=== PATIENT | female | born 1930 | race Caucasian/White ===

== ENCOUNTER 2016-04-03 12:56 | Emergency (ER) | payer MEDICARE, MEDICAID ==
[2016-04-03 13:16] VITALS: BMI 22.4
--- NOTE | 2016-04-03 13:49 | EDPRACDOC ---
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 Mode of Arrival: Ambulance Home Medications: Home Medications Clopidogrel Bisulfate [Plavix] 75 mg PO DAILY 09/26/12 PEG-Electrolytes (Miralax) [Miralax] 17 gm PO DAILY PRN 09/26/12 Triamcinolone Acetonide 1 gm TOP TID 09/26/12 Cholecalciferol [Vitamin D3 (cholecalciferol)] 1,000 units PO DAILY 12/17/12 Levetiracetam [Keppra Xr] 1,000 mg PO BID 01/08/14 Lisinopril [Prinivil] 2.5 mg PO HS 01/08/14 Acetaminophen [Tylenol] 650 mg PO Q6H 06/22/14 Docusate Sodium [Colace] 100 mg PO QAM 06/22/14 Levothyroxine [Synthroid, Levoxyl] 25 mcg PO DAILY #30 tab 06/23/14 Diphenhydramine [Benadryl] 25 mg PO TID PRN 08/22/14 Furosemide [Lasix] 20 mg PO BID 08/22/14 Melatonin/Pyridoxine HCl (B6) [Melatonin 10 mg Tablet] 1 tab PO HS 08/22/14 Atorvastatin Calcium [Lipitor] 10 mg PO DAILY 06/26/15 Mineral Oil [Mineral Oil Heavy] 2 drop AU WE 06/26/15 Alprazolam [Xanax] 0.5 mg PO QHS 03/14/16 Tramadol HCl [Ultram] 50 mg PO Q6 PRN #15 tablet 03/15/16 Guaifenesin [Robitussin] 5 ml PO Q8H PRN 04/03/16 Hydrocodone Bit/Acetaminophen [Hydrocodon-Acetaminophen 5-325] 1 tab PO Q4H PRN #14 tab 04/03/16 Allergies/Adverse Reactions: Allergies Allergy/AdvReac Type Severity Reaction Status Date / Time aspirin Allergy Unknown Unknown Verified 04/03/16 13:20 Penicillins Allergy Unknown Unknown Verified 04/03/16 13:20 - History of Present Illness Onset: 3 days HPI: PT PRESENTS TO ED BY EMS FOR RIGHT SHOULDER PAIN. NO NEW INJURY AT THIS TIME, HAS HAD PROBLEM WITH ROTATOR CUFF IN PAST, PT STATES DOESNT HURT ALL THE TIME BUT FLARES UP FROM TIME TO TIME. 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 ALS IV Yes ED Past Medical History - History Reviewed Yes Nurses notes reviewed and agree except as marked Travel Outside of [place] in the Last 3 Months?: No Information Unobtainable: Yes Unable to obtain information due to patient condition - Patient Medical History Neurological History: Reports: Seizures, Dementia Cardiac History: Reports: Hypertension, Congestive Heart Failure, Heart Attack, Hypercholesterolemia Respiratory History: Reports: COPD GI/ History: Reports: Gastroesophageal Reflux Musculoskeletal History: Reports: Arthritis Psychological History: Denies: Depression Systemic History: Denies: Cancer Surgical History: Reports: Hysterectomy, Tonsillectomy/Adnoidectomy, Other ( RIGHT ROTATOR CUFF) - Family Medical History Reports: Hypertension (Mom), Diabetes (brother), Cancer (Mom, brother X 2), Cardiac Disorders (Dad). Denies: Stroke - Social Medical History Smoking Status: Never smoker EDM Review of Systems - Review of Systems ROS Negative Except as Marked: Yes All systems reviewed and were negative except as marked ROS Unobtainable: Yes Review of systems cannot be obtained due to the patient's medical condition (DEMENTIA, PT SENT TO ED BY EMS) Constitutional: No Symptoms Reported. negative: Fever, Chills, Weakness, Fatigue, Loss of Appetite Eyes: No Symptoms Reported. negative: Redness, Blurred Vision, Double Vision, Discharge, Pain, Light Sensitive, Photophobia Ears: No Symptoms Reported. negative: Pain, Hearing Loss, Drainage, Ear Pulling Throat: No Symptoms Reported. negative: Pain, Swelling Nose: No Symptoms Reported. negative: Congestion, Bleeding, Discharge, Injection, Swelling, Deformity, Ecchymosis, Tender, Abrasion, Laceration Mouth: No Symptoms Reported. negative: Pain, Drooling Respiratory: No Symptoms Reported. negative: Cough, Brassy Cough, Barky Cough, Shortness of Breath, Wheezing, Hemoptysis Cardiovascular: No Symptoms Reported. negative: Chest Pain, Palpitations, Syncope, Edema, Orthopnea, PND, Skin Mottling, Cyanosis Gastrointestinal: No Symptoms Reported. negative: Pain, Constipation, Nausea, Vomiting, Diarrhea, Melena, Formula Intolerance Genitourinary: No Symptoms Reported. negative: Dysuria, Hematuria, Frequency, Discharge, Bleeding, Testicular Pain, Neurological: No Symptoms Reported. negative: Headache, Dizziness, Seizure, Numbness, Weakness, Speech Difficulty, Gait Difficulty Musculoskeletal: Shoulder (RT). negative: Arm, Ankle, Back, Chestwall, Elbow, Forearm, Femur, Foot, Hand, Hip, Knee, Leg, Neck, Pelvis, Ribs, Wrist Integumentary: No Symptoms Reported. negative: Itching, Rash, Bruising, Wound Allergic/Immunologic: No Symptoms Reported. negative: Hives, Itching Hematologic: No Symptoms Reported. negative: Lymphadenopathy, Easy Bruising, Easy Bleeding Endocrine: No Symptoms Reported. negative: Weight Gain, Weight Loss Psychiatric: No Symptoms Reported. negative: Anxiety, Depression, Hallucinations, Insomnia, Suicidal - Physical Exam Constitutional: Alert, Confused Oriented to: Unable to Test (DEMENTIA) Last recorded Vital Signs: Last Vital Signs Temp 98.4 F 04/03/16 13:07 Pulse 81 04/03/16 13:16 Resp 16 04/03/16 13:16 BP 144/74 04/03/16 13:16 Pulse Ox 96 04/03/16 13:16 Oxygen Pulse Oxygen Saturation 96 O2 Device Oxygen Flow Rate Fraction of Inspired Oxygen ( FIO2) - HEENT Head: Normal ( normocephalic) Eye Exam: Normal (PERRL, EOMI, Sclera white) Oropharynx: Normal (Pharynx:Moist without exudate,Gums-no swelling) Tympanic Membrane: Normal ENT EAC: Normal TMJ: Normal Nose: No Symptoms Reported (septum midline) Neck: Normal (FROM, trachea at midline) - Respiratory/Cardiovascular Respiratory: Normal - CTA (BBS clear to auscultation without adventitious sounds ) Cardiovascular: Normal (RRR without murmur, gallop or rub) - GI Auscultation: Normal (NABS) Palpation: Normal (Soft,No rebound or guarding, non distended) Tenderness: Non tender Xie's Sign: Negative - Bladder: Normal - Musculoskeletal Back: Normal (Non-Tender) Extremities: Normal (Normal tone, Pulses 2+ No cyanosis or edema, FROM) - Integumentary Skin: Normal, Warm, Dry Lymphatics: Normal (no adenopathy) - Neurologic Memory Impaired: Normal Motor Function: Normal (Normal tone, Pulses 2+ No cyanosis or edema, FROM) Cranial Nerve: Normal (CN II-X11 intact sensation, strength 5/5) Cerebellar: Normal Mood Description: Normal Perception: Normal ED Shoulder Problem Exam - Musculoskeletal Clavicle: Normal Shoulder: Limited ROM, Tender Arm: Normal Distal Function/Circulation: Normal - Differential Diagnosis Dislocation, Humerus fracture/open, Rotator cuff injury, Sprain - Diagnostic Imaging SHOULDER Image interpreted by: Radiologist IMPRESSION: Mild glenohumeral degenerative changes and osseous demineralization. Lateral downsloping acromion with inferior acromial spur formation which would predispose patient to rotator cuff disease. No acute abnormalities. Decision Time to Discharge: 14:15 - Departure Disposition: Home Condition: Stable Final Diagnosis: Right shoulder strain Qualifiers: Encounter type: initial encounter Qualified Code(s): S46.911A - Strain of unspecified muscle, fascia and tendon at shoulder and upper arm level, right arm , initial encounter Rotator cuff arthropathy Qualifiers: Laterality: right Qualified Code(s): M12.811 - Other specific arthropathies, not elsewhere classified, right shoulder Instructions: RICE: Routine Care for Injuries, Rotator Cuff Injury (ED) Education/Counseling Given To: Patient Education/Counseling Given Regarding: Diagnosis, Treatment, Prognosis, Follow Up Referrals: None,No Provider [Primary Care Provider] - One Week Alireza Heller MD [Staff Physician] - One Week Prescriptions: Hydrocodone Bit/Acetaminophen [Hydrocodon-Acetaminophen 5-325] 1 tab PO Q4H PRN #14 tab PRN Reason: Pain Additional Instructions: FOLLOW WITH ORTHOPEDIST PATRICIA. RETURN FOR WORSE OR DIFFERENT SYMPTOMS.
[2016-04-03] MEDS ORDERED: OXYCODONE HCL 5 MG TABLET PO ONE (13:53)
--- NOTE | 2016-04-03 14:10 | DIRPT ---
CLINICAL DATA: RIGHT shoulder pain, no new injury, history of rotator cuff disease EXAM: RIGHT SHOULDER - 2+ VIEW COMPARISON: 03/14/2016 FINDINGS: Osseous demineralization. Lateral downsloping of acromion with inferior acromial spur formation, which would predispose patient to rotator cuff pathology. Minimal spurring at the glenoid rim. AC joint alignment normal. No definite acute fracture, dislocation or bone destruction. Visualized RIGHT ribs intact. IMPRESSION: Mild glenohumeral degenerative changes and osseous demineralization. Lateral downsloping acromion with inferior acromial spur formation which would predispose patient to rotator cuff disease. No acute abnormalities. Electronically Signed By: Clyde Joshi M.D. On: 04/03/2016 14:08
[2016-04-03 14:54] VITALS: BP 139/76; PULSE 78; TEMP 98.3
== END 2016-04-03 15:00 | disposition short-term general hospital (02) ==
LOC: ED 12:56
DX: S46.911A Strain of unspecified muscle, fascia and tendon at shoulder and upper arm level, right arm, initial encounter (principal); X58.XXXA Exposure to other specified factors, initial encounter; M12.811 Other specific arthropathies, not elsewhere classified, right shoulder; F03.90 Unspecified dementia, unspecified severity, without behavioral disturbance, psychotic disturbance, mood disturbance, and anxiety; I10 Essential (primary) hypertension; I50.9 Heart failure, unspecified; E78.00 Pure hypercholesterolemia, unspecified; J44.9 Chronic obstructive pulmonary disease, unspecified; K21.9 Gastro-esophageal reflux disease without esophagitis; Z79.899 Other long term (current) drug therapy
CPT/HCPCS: 73030; 99283; A9270; J3490

== ENCOUNTER 2016-04-06 16:33 | Inpatient (IN) | payer MEDICARE, MEDICAID ==
[2016-04-06 16:34] VITALS: BMI 22.4
[2016-04-06 17:02] LABS: WBC/URINE 0-2 (0-5)
[2016-04-06 17:04] LABS: LEUKOCYTES/URINE NEG (NEGATIVE); NITRITE/URINE NEG (NEGATIVE); URINE OCCULT BLOOD 2+ (NEG/TRACE)
[2016-04-06] MEDS ORDERED: SODIUM CHLORIDE 0.9% 10 ML FLUSH FLUSH PRN (17:04)
[2016-04-06] MEDS ORDERED: NS 1,000 ML IV ONE (17:04)
[2016-04-06 17:38] LABS: AUTOMATED LYMPH 34.2 % (17-44); AUTOMATED MONOCYTE 7.3 % (3-10); AUTOMATED NEUTROPHIL 56.5 % (45-76)
--- NOTE | 2016-04-06 17:43 | DIRPT ---
CLINICAL DATA: Chest pain. EXAM: PORTABLE CHEST 1 VIEW COMPARISON: 03/14/2016. FINDINGS: Normal sized heart. Mildly progressive elevation of the left hemidiaphragm with minimal adjacent atelectasis. Otherwise, clear lungs with normal vascularity. Unremarkable bones. IMPRESSION: Mildly progressive elevation of the left hemidiaphragm with minimal left basilar atelectasis. Electronically Signed By: Dhruv Whittaker M.D. On: 04/06/2016 17:40
[2016-04-06 17:51] LABS: PARTIAL THROMB. TIME 18.6 SEC (22-35)
[2016-04-06 17:53] LABS: BLOOD UREA NITROGEN 14 MG/DL (7-17); CALCIUM 9.5 MG/DL (8.4-10.2); CALCULATED OSMOLALITY 254 MOs/Kg (270-290); CHLORIDE 94 mEq/L (98-107); GLUCOSE 97 MG/DL (70-99); SODIUM LEVEL 131 mEq/L (137-146); TOTAL PROTEIN 6.9 G/DL (6.3-8.2)
--- NOTE | 2016-04-06 18:01 | DIRPT ---
CLINICAL DATA: Facial droop and slurred speech today. EXAM: CT HEAD WITHOUT CONTRAST TECHNIQUE: Contiguous axial images were obtained from the base of the skull through the vertex without intravenous contrast. COMPARISON: Previous examinations, the most recent dated 09/11/2015. FINDINGS: Diffusely enlarged ventricles and subarachnoid spaces. Patchy white matter low density in both cerebral hemispheres. An old right caudate head lacunar infarct and old lacunar infarct or prominent perivascular space in the inferior left basal ganglia are unchanged. No intracranial hemorrhage, mass lesion or CT evidence of acute infarction. Mild mucosal thickening and fluid in the left mastoid air cells inferiorly. This is a chronic finding. IMPRESSION: 1. No acute abnormality. 2. Stable atrophy, chronic small vessel white matter ischemic changes and old caudate head lacunar infarct on the right. 3. Mild chronic left mastoid air cell mucosal thickening and fluid. Electronically Signed By: Dhruv Whittaker M.D. On: 04/06/2016 17:58
--- NOTE | 2016-04-06 18:05 | EDPRACDOC ---
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 Mode of Arrival:: Ambulance Home Medications: Home Medications Clopidogrel Bisulfate [Plavix] 75 mg PO DAILY 09/26/12 PEG-Electrolytes (Miralax) [Miralax] 17 gm PO DAILY PRN 09/26/12 Triamcinolone Acetonide 1 gm TOP TID 09/26/12 Cholecalciferol [Vitamin D3 (cholecalciferol)] 1,000 units PO DAILY 12/17/12 Levetiracetam [Keppra Xr] 1,000 mg PO BID 01/08/14 Lisinopril [Prinivil] 2.5 mg PO HS 01/08/14 Acetaminophen [Tylenol] 650 mg PO Q6H 06/22/14 Docusate Sodium [Colace] 100 mg PO QAM 06/22/14 Levothyroxine [Synthroid, Levoxyl] 25 mcg PO DAILY #30 tab 06/23/14 Diphenhydramine [Benadryl] 25 mg PO TID PRN 08/22/14 Furosemide [Lasix] 20 mg PO BID 08/22/14 Melatonin/Pyridoxine HCl (B6) [Melatonin 10 mg Tablet] 1 tab PO HS 08/22/14 Atorvastatin Calcium [Lipitor] 10 mg PO DAILY 06/26/15 Mineral Oil [Mineral Oil Heavy] 2 drop AU WE 06/26/15 Alprazolam [Xanax] 0.5 mg PO QHS 03/14/16 Tramadol HCl [Ultram] 50 mg PO Q6 PRN #15 tablet 03/15/16 Guaifenesin [Robitussin] 5 ml PO Q8H PRN 04/03/16 Hydrocodone Bit/Acetaminophen [Hydrocodon-Acetaminophen 5-325] 1 tab PO Q4H PRN #14 tab 04/03/16 Allergies/Adverse Reactions: Allergies Allergy/AdvReac Type Severity Reaction Status Date / Time aspirin Allergy Unknown Unknown Verified 04/03/16 13:20 Penicillins Allergy Unknown Unknown Verified 04/03/16 13:20 - History of Present Illness Exact Onset of Symptoms: Unknown Symptoms Started: Reports: Gradually Symptoms: Reports: Facial droop, Slurred speech Associated signs and symptoms:: Reports: None ED Past Medical History - History Reviewed Yes Nurses notes reviewed and agree except as marked - Patient Medical History Neurological History: Reports: Seizures, Dementia Cardiac History: Reports: Hypertension, Congestive Heart Failure, Heart Attack, Hypercholesterolemia Respiratory History: Reports: COPD GI/ History: Reports: Gastroesophageal Reflux Musculoskeletal History: Reports: Arthritis Psychological History: Denies: Depression Systemic History: Denies: Cancer Surgical History: Reports: Hysterectomy, Tonsillectomy/Adnoidectomy, Other ( RIGHT ROTATOR CUFF) - Family Medical History Reports: Hypertension (Mom), Diabetes (brother), Cancer (Mom, brother X 2), Cardiac Disorders (Dad). Denies: Stroke - Social Medical History Smoking Status: Never smoker EDM Review of Systems - Review of Systems ROS Negative Except as Marked: Yes All systems reviewed and were negative except as marked - Physical Exam Constitutional: Alert (Awake), No apparent distress Oriented to: Time, Person, Place Last recorded Vital Signs: Last Vital Signs Temp 99.8 F 04/06/16 16:45 Pulse 72 04/06/16 17:50 Resp 18 04/06/16 17:50 BP 167/75 04/06/16 17:50 Pulse Ox 98 04/06/16 17:50 Oxygen Pulse Oxygen Saturation 98 O2 Device Room Air Oxygen Flow Rate Fraction of Inspired Oxygen ( FIO2) - HEENT Head: Normal ( normocephalic) Eye Exam: Normal (PERRL, EOMI, Sclera white) Oropharynx: Normal (Pharynx:Moist without exudate,Gums-no swelling) ENT EAC: Normal TMJ: Normal Nose: No Symptoms Reported (septum midline) Neck: Normal (FROM, trachea at midline) - Respiratory/Cardiovascular Respiratory: Normal - CTA (BBS clear to auscultation without adventitious sounds ) Cardiovascular: Normal (RRR without murmur, gallop or rub) - GI Auscultation: Normal (NABS) Palpation: Normal (Soft,No rebound or guarding, non distended) Tenderness: Non tender Xie's Sign: Negative - Musculoskeletal Back: Normal (Non-Tender) Extremities: Normal (Normal tone, Pulses 2+ No cyanosis or edema, FROM) - Integumentary Skin: Normal, Warm, Dry Lymphatics: Normal (no adenopathy) - Neurologic Memory Impaired: Unable to Test Motor Function: Normal (Normal tone, Pulses 2+ No cyanosis or edema, FROM) Cranial Nerve: 7 Cerebellar: Normal Mood Description: Normal Perception: Normal - Action Has patient received an Antithrombotic in the last 24hrs?: No Was an Antithrombotic given in the ED?: No Is patient a candidate for lytic therapy?: No Patient received TPA within 30 min of arrival?: No Reason IV Thrombolytics Contraindicated: Rapid Improvement - Results 04/06/16 17:20 04/06/16 17:20 WBC 4.7 xk/uL (3.8-10.8) 04/06/16 17:20 RBC 3.52 xM/uL (4.20-5.40) L 04/06/16 17:20 Hgb 11.3 g/dL (12.0-16.0) L 04/06/16 17:20 Hct 33.1 % (36-47) L 04/06/16 17:20 MCV 94 fL (81-99) 04/06/16 17:20 MCH 32.1 pg (27-32) H 04/06/16 17:20 MCHC 34.1 g/dl (33-36) 04/06/16 17:20 RDW 14.9 % (11.5-14.5) H 04/06/16 17:20 Plt Count 386 xk/uL (130-400) 04/06/16 17:20 MPV 7.0 fL (7.4-10.4) L 04/06/16 17:20 Neut % (Auto) 56.5 % (45-76) 04/06/16 17:20 Lymph % (Auto) 34.2 % (17-44) 04/06/16 17:20 [place] % (Auto) 7.3 % (3-10) 04/06/16 17:20 Eos % (Auto) 1.0 % (0-5) 04/06/16 17:20 Baso % (Auto) 1.0 % (0-2) 04/06/16 17:20 Absolute Neuts (auto) 2.63 xk/uL (1.7-8.2) 04/06/16 17:20 Absolute Lymphs (auto) 1.60 xk/uL (0.65-4.75) 04/06/16 17:20 PT 10.4 SEC (9.2-11.2) 04/06/16 17:20 INR 1.0 04/06/16 17:20 APTT 18.6 SEC (22-35) L 04/06/16 17:20 Sodium 131 mEq/L (137-146) L 04/06/16 17:20 Potassium 3.8 mEq/L (3.5-5.1) 04/06/16 17:20 Chloride 94 mEq/L (98-107) L 04/06/16 17:20 Carbon Dioxide 26 mMOL/L (22-33) 04/06/16 17:20 Anion Gap 15 mEq/L (8-16) 04/06/16 17:20 BUN 14 MG/DL (7-17) 04/06/16 17:20 Creatinine 0.70 MG/DL (0.52-1.04) 04/06/16 17:20 Estimated GFR (MDRD) > 60 mL/min (>=60) 04/06/16 17:20 Glucose 97 MG/DL (70-99) 04/06/16 17:20 Calculated Osmolality 254 MOs/Kg (270-290) L 04/06/16 17:20 Calcium 9.5 MG/DL (8.4-10.2) 04/06/16 17:20 Total Bilirubin 0.6 MG/DL (0.2-1.3) 04/06/16 17:20 AST 29 IU/L (14-36) 04/06/16 17:20 ALT 26 IU/L (9-52) 04/06/16 17:20 Alkaline Phosphatase 66 IU/L (55-165) 04/06/16 17:20 Total Protein 6.9 G/DL (6.3-8.2) 04/06/16 17:20 Albumin 4.1 G/DL (3.5-5.0) 04/06/16 17:20 Urine Color Pale yellow 04/06/16 16:45 Urine Clarity Clear 04/06/16 16:45 Urine pH 6.0 (5.0-8.0) 04/06/16 16:45 Ur Specific [place] 1.005 (1.003-1.035) 04/06/16 16:45 Urine Protein Neg (NEG/TRACE) 04/06/16 16:45 Urine Glucose (UA) Neg (NEGATIVE) 04/06/16 16:45 Urine Ketones Neg (NEGATIVE) 04/06/16 16:45 Urine Occult Blood 2+ (NEG/TRACE) H 04/06/16 16:45 Urine Nitrite Neg (NEGATIVE) 04/06/16 16:45 Urine Bilirubin Neg (NEGATIVE) 04/06/16 16:45 Urine Urobilinogen 0.2 MG/DL (0-1) 04/06/16 16:45 Ur Leukocyte Esterase Neg (NEGATIVE) 04/06/16 16:45 Urine RBC 2-5 (0-5) 04/06/16 16:45 Urine WBC 0-2 (0-5) 04/06/16 16:45 Urine Bacteria Few (NEG/FEW) 04/06/16 16:45 Hyaline Casts 0-2 (0-2) 04/06/16 16:45 Urine Mucus Occ (NEG/OCC) 04/06/16 16:45 Lab Results 04/06/16 04/06/16 04/06/16 17:20 17:20 17:20 WBC 4.7 RBC 3.52 L Hgb 11.3 L Hct 33.1 L MCV 94 MCH 32.1 H MCHC 34.1 RDW 14.9 H Plt Count 386 MPV 7.0 L Neut % (Auto) 56.5 Lymph % (Auto) 34.2 [place] % (Auto) 7.3 Eos % (Auto) 1.0 Baso % (Auto) 1.0 Absolute Neuts (auto) 2.63 Absolute Lymphs (auto) 1.60 PT 10.4 INR 1.0 APTT 18.6 L Sodium 131 L Potassium 3.8 Chloride 94 L Carbon Dioxide 26 Anion Gap 15 BUN 14 Creatinine 0.70 Estimated GFR (MDRD) > 60 Glucose 97 Calculated Osmolality 254 L Calcium 9.5 Total Bilirubin 0.6 AST 29 ALT 26 Alkaline Phosphatase 66 Total Protein 6.9 Albumin 4.1 Urine Color Urine Clarity Urine pH Ur Specific [place] Urine Protein Urine Glucose (UA) Urine Ketones Urine Occult Blood Urine Nitrite Urine Bilirubin Urine Urobilinogen Ur Leukocyte Esterase Urine RBC Urine WBC Urine Bacteria Hyaline Casts Urine Mucus 04/06/16 16:45 WBC RBC Hgb Hct MCV MCH MCHC RDW Plt Count MPV Neut % (Auto) Lymph % (Auto) [place] % (Auto) Eos % (Auto) Baso % (Auto) Absolute Neuts (auto) Absolute Lymphs (auto) PT INR APTT Sodium Potassium Chloride Carbon Dioxide Anion Gap BUN Creatinine Estimated GFR (MDRD) Glucose Calculated Osmolality Calcium Total Bilirubin AST ALT Alkaline Phosphatase Total Protein Albumin Urine Color Pale yellow Urine Clarity Clear Urine pH 6.0 Ur Specific [place] 1.005 Urine Protein Neg Urine Glucose (UA) Neg Urine Ketones Neg Urine Occult Blood 2+ H Urine Nitrite Neg Urine Bilirubin Neg Urine Urobilinogen 0.2 Ur Leukocyte Esterase Neg Urine RBC 2-5 Urine WBC 0-2 Urine Bacteria Few Hyaline Casts 0-2 Urine Mucus Occ - EKG EKG #1 [place]: Normal Rhythm: NSR Block: None Hypertrophy: None ST: Normal - Departure Yes I personally saw and evaluated the patient. 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
--- NOTE | 2016-04-06 18:31 | HISTPHYS ---
- Chief Complaint weakness - History of Present Illness PRIMARY CARE PROVIDER: Dr. Ruth Patient resides in [facility] living HPI: The patient is an 85 yo woman with dementia, seizures, who presents today with facial droop, slurred speech, and right arm weakness. Onset of the symptoms was sometime today, but patient is not sure when. Additional history is obtained from the medical records and the emergency department staff. Onset: today. Per records approximately 3 pm. Duration: constant but decreasing. Location: face and right arm. Radiation: none. Character: weakness. Alleviated by: Nothing. Exacerbated by: Nothing. Associated Symptoms: No numbness. No headache. Patient currently has no symptoms. No recent seizure activity. Slurred speech had resolved in the emergency department. Treatments: none at home except usual medications. The patient was improving in the emergency department. Currently she has minimal facial droop and only minimal weakness in the right arm, and some of the right arm weakness may be due to a rotator cuff problem she has had. - Medical History Cardiac History: Reports: Hypertension, Congestive Heart Failure, Heart Attack, Hypercholesterolemia Respiratory History: Reports: COPD (mild.) GI/ History: Reports: Gastroesophageal Reflux Musculoskeletal History: Reports: Arthritis Systemic History: Denies: Cancer Neurological History: Reports: Seizures, Dementia Psychological History: Denies: Depression OTHER HISTORY: ECHOCARDIOGRAM 06/22/2014: EF 60-65%. OVERALL LEFT VENTRICULAR SYSTOLIC FUNCTION IS NORMAL. Diastolic filling pattern indicates impaired relaxation. Mild aortic valve sclerosis without stenosis. Mild aortic regurgitation. Mild mitral regurgitation. - Surgical History Reports: Hysterectomy, Tonsillectomy/Adnoidectomy, Other (RIGHT ROTATOR CUFF) - Medictions/Allergies Allergies aspirin Allergy (Unknown, Verified 04/03/16 13:20) Unknown Penicillins Allergy (Unknown, Verified 04/03/16 13:20) Unknown Current Medication List: Reviewed Home Medications Clopidogrel Bisulfate [Plavix] 75 mg PO DAILY 09/26/12 PEG-Electrolytes (Miralax) [Miralax] 17 gm PO DAILY PRN 09/26/12 Triamcinolone Acetonide 1 gm TOP TID 09/26/12 Cholecalciferol [Vitamin D3 (cholecalciferol)] 1,000 units PO DAILY 12/17/12 Levetiracetam [Keppra Xr] 1,000 mg PO BID 01/08/14 Lisinopril [Prinivil] 2.5 mg PO HS 10/23/14 Acetaminophen [Tylenol] 650 mg PO Q6H 06/22/14 Docusate Sodium [Colace] 100 mg PO QAM 06/22/14 Levothyroxine [Synthroid, Levoxyl] 25 mcg PO DAILY #30 tab 06/23/14 Diphenhydramine [Benadryl] 25 mg PO TID PRN 08/22/14 Furosemide [Lasix] 20 mg PO BID 08/22/14 Melatonin/Pyridoxine HCl (B6) [Melatonin 10 mg Tablet] 1 tab PO HS 08/22/14 Atorvastatin Calcium [Lipitor] 10 mg PO DAILY 06/26/15 Mineral Oil [Mineral Oil Heavy] 2 drop AU WE 06/26/15 Alprazolam [Xanax] 0.5 mg PO QHS 03/14/16 Tramadol HCl [Ultram] 50 mg PO Q6 PRN #15 tablet 03/15/16 Guaifenesin [Robitussin] 5 ml PO Q8H PRN 04/03/16 Hydrocodone Bit/Acetaminophen [Hydrocodon-Acetaminophen 5-325] 1 tab PO Q4H PRN #14 tab 04/03/16 - Family History Reports: Hypertension (Mom), Diabetes (brother), Cancer (Mom, brother X 2), Cardiac Disorders (Dad). Denies: Stroke - Social History Smoking Status: Never smoker Social History: Denies: Alcohol Use, Substance Use Disorder - Review of Systems GENERAL: No Fever, chills, or diaphoresis. Positive for fatigue/malaise. HEENT: No ear pain or discharge. No nasal discharge or bleeding. No throat pain or swelling. No eye pain or eye redness. RESPIRATORY: No cough, wheezing, or shortness of breath. CARDIOVASCULAR: No chest pain or palpitations. GI: No abdominal pain, nausea, vomiting, diarrhea, constipation, or bloody stool. NEUROLOGICAL: No headache. Except as per HPI, no other focal weakness. INTEGUMENT: no rashes, itching, or lesions. LYMPHATIC SYSTEM: no lymph node swelling or pain. MUSCULOSKELETAL: no pain or joint swelling. GENITOURINARY: No dysuria or hematuria. ENDOCRINE: No polyuria or polydipsia. HEME: No chronic anemia, bleeding, or easy bruising. - Physical Exam Vital Signs: Initial Vitals Temperature 99.8 F 04/06/16 16:37 Pulse Rate 70 04/06/16 16:37 Respiratory Rate 18 04/06/16 16:37 Blood Pressure 153/68 04/06/16 16:37 Pulse Oxygen Saturation 100 04/06/16 16:37 Vital Signs - 24 hr 04/06/16 04/06/16 04/06/16 16:37 16:45 17:50 Temperature 99.8 F 99.8 F Pulse Rate 70 73 72 Respiratory 18 21 18 Rate Blood Pressure 153/68 153/68 167/75 Pulse Oxygen 100 100 98 Saturation Weight: 61.2 kg Height: 5 feet 5 inch BMI: 22.5 - Other Exam Other Exam Findings: GENERAL: Ill-appearing, well nourished, in acute distress. HEENT: Normocephalic, atraumatic; pupils equal and round. Nares patent, without discharge or bleeding. No oropharyngeal lesions or erythema. Mucous membranes are dry. NECK: is supple, no masses, trachea midline. RESPIRATORY: Clear to auscultation bilaterally. Chest wall movements are symmetric. No use of accessory muscles to breathe. No wheezing, rales, rhonchi. CARDIOVASCULAR: Normal S1, S2. No murmurs, rubs, or gallops. PMI non-displaced. Carotids: no carotid bruits. No bradycardia or tachycardia. DP pulses 1-2+ bilaterally. GI: soft, nontender, non-distended, normal active bowel sounds. No hepatosplenomegaly. INTEGUMENT: Clean, dry, and intact. No rashes. MUSCULOSKELETAL: Moving all extremities. No cyanosis. No clubbing. Edema: none bilaterally. NEUROLOGICAL: Cranial nerves 2-12 grossly intact, except slight facial droop. Motor 4+/5 throughout, with slightly decreased strength 4/5 on right upper extremity. Reflexes: 2+ bilaterally. Babinski: toes downgoing bilaterally. Intact Finger to nose. Sensory grossly intact to light touch. Intact rapid alternating movements bilaterally. No pronator drift. PSYCHIATRIC: Oriented to person and year. Not oriented to place. Normal and appropriate affect. LYMPHATIC: No cervical lymphadenopathy. No supraclavicular lymphadenopathy. - Lab Results Laboratory Results - last 24 hr 04/06/16 04/06/16 04/06/16 16:45 17:20 17:20 WBC 4.7 RBC 3.52 L Hgb 11.3 L Hct 33.1 L MCV 94 MCH 32.1 H MCHC 34.1 RDW 14.9 H Plt Count 386 MPV 7.0 L Neut % (Auto) 56.5 Lymph % (Auto) 34.2 [place] % (Auto) 7.3 Eos % (Auto) 1.0 Baso % (Auto) 1.0 Absolute Neuts (auto) 2.63 Absolute Lymphs (auto) 1.60 PT INR APTT Sodium 131 L Potassium 3.8 Chloride 94 L Carbon Dioxide 26 Anion Gap 15 BUN 14 Creatinine 0.70 Estimated GFR (MDRD) > 60 Glucose 97 Calculated Osmolality 254 L Calcium 9.5 Total Bilirubin 0.6 AST 29 ALT 26 Alkaline Phosphatase 66 Troponin I < 0.01 Rhe-Q-Tocsyzlynkj Pept 150 Total Protein 6.9 Albumin 4.1 Urine Color Pale yellow Urine Clarity Clear Urine pH 6.0 Ur Specific [place] 1.005 Urine Protein Neg Urine Glucose (UA) Neg Urine Ketones Neg Urine Occult Blood 2+ H Urine Nitrite Neg Urine Bilirubin Neg Urine Urobilinogen 0.2 Ur Leukocyte Esterase Neg Urine RBC 2-5 Urine WBC 0-2 Urine Bacteria Few Hyaline Casts 0-2 Urine Mucus Occ 04/06/16 17:20 WBC RBC Hgb Hct MCV MCH MCHC RDW Plt Count MPV Neut % (Auto) Lymph % (Auto) [place] % (Auto) Eos % (Auto) Baso % (Auto) Absolute Neuts (auto) Absolute Lymphs (auto) PT 10.4 INR 1.0 APTT 18.6 L Sodium Potassium Chloride Carbon Dioxide Anion Gap BUN Creatinine Estimated GFR (MDRD) Glucose Calculated Osmolality Calcium Total Bilirubin AST ALT Alkaline Phosphatase Troponin I Xcm-G-[place]vbfe Pept Total Protein Albumin Urine Color Urine Clarity Urine pH Ur Specific [place] Urine Protein Urine Glucose (UA) Urine Ketones Urine Occult Blood Urine Nitrite Urine Bilirubin Urine Urobilinogen Ur Leukocyte Esterase Urine RBC Urine WBC Urine Bacteria Hyaline Casts Urine Mucus - Diagnostic Findings DIAGNOSTIC DATA: EK bpm. Normal sinus rhythm. Incomplete right bundle branch block. Nonspecific ST abnormality. Reviewed EKG personally. IMAGING: Chest x-ray, viewed personally: EXAM: PORTABLE CHEST 1 VIEW COMPARISON: 03/14/2016. FINDINGS: Normal sized heart. Mildly progressive elevation of the left hemidiaphragm with minimal adjacent atelectasis. Otherwise, clear lungs with normal vascularity. Unremarkable bones. IMPRESSION: Mildly progressive elevation of the left hemidiaphragm with minimal left basilar atelectasis. Head CT: EXAM: CT HEAD WITHOUT CONTRAST TECHNIQUE: Contiguous axial images were obtained from the base of the skull through the vertex without intravenous contrast. COMPARISON: Previous examinations, the most recent dated 09/11/2015. FINDINGS: Diffusely enlarged ventricles and subarachnoid spaces. Patchy white matter low density in both cerebral hemispheres. An old right caudate head lacunar infarct and old lacunar infarct or prominent perivascular space in the inferior left basal ganglia are unchanged. No intracranial hemorrhage, mass lesion or CT evidence of acute infarction. Mild mucosal thickening and fluid in the left mastoid air cells inferiorly. This is a chronic finding. IMPRESSION: 1. No acute abnormality. 2. Stable atrophy, chronic small vessel white matter ischemic changes and old caudate head lacunar infarct on the right. 3. Mild chronic left mastoid air cell mucosal thickening and fluid. PREVIOUS IMAGING: Right shoulder x-ray, 04/03/16: EXAM: RIGHT SHOULDER - 2+ VIEW COMPARISON: 03/14/2016 FINDINGS: Osseous demineralization. Lateral downsloping of acromion with inferior acromial spur formation, which would predispose patient to rotator cuff pathology. Minimal spurring at the glenoid rim. AC joint alignment normal. No definite acute fracture, dislocation or bone destruction. Visualized RIGHT ribs intact. IMPRESSION: Mild glenohumeral degenerative changes and osseous demineralization. Lateral downsloping acromion with inferior acromial spur formation which would predispose patient to rotator cuff disease. No acute abnormalities. - Assessment (1) CVA - cerebrovascular accident due to cerebral artery occlusion I63.50 - CEREB INFRC DUE TO UNSP OCCLS OR STENOS OF UNSP CEREB ARTERY Acute Present on Admission: Yes Plan: CVA order set. MRI head and Ultrasound of carotids in the AM. NPO until speech therapy evaluation. Physical therapy and occupational therapy evaluations. Neuro checks q 4 hours. Telemetry. NO daily aspirin due to allergy. May want to consider other medication, such as Plavix. Continue statin. Check lipid levels. NOTE: TPA NOT GIVEN. NO TPA DUE TO: NIH stroke score too low, and patient improving rapidly. (2) Facial droop R29.810 - FACIAL WEAKNESS Acute Present on Admission: Yes Plan: Continue CVA workup. Speech therapy evaluation. (3) Dysphagia R13.10 - DYSPHAGIA, UNSPECIFIED Acute Present on Admission: Yes Qualifiers: Dysphagia type: D Reports of dysphagia prior to arrival in emergency department. Plan: Continue CVA workup. NPO initially. Speech therapy evaluation. (4) Seizure disorder G40.909 - EPILEPSY, UNSP, NOT INTRACTABLE, WITHOUT STATUS EPILEPTICUS Acute Present on Admission: Yes No witnessed seizure activity. Plan: Change Keppra to IV until patient is taking PO. Monitor for seizure activity. (5) Rotator cuff arthropathy M12.819 - OTH SPECIFIC ARTHROPATHIES, NEC, UNSP SHOULDER Chronic Present on Admission: Yes Qualifiers: Laterality: right Qualified Code(s): M12.811 - Other specific arthropathies , not elsewhere classified, right shoulder Is a subacute issue. Right shoulder pain and weakness may be contributing to her right upper extremity weakness. Plan: PRN pain medication. Outpatient follow up. (6) Hypothyroid E03.9 - HYPOTHYROIDISM, UNSPECIFIED Acute Present on Admission: Yes Qualifiers: Hypothyroidism type: H Plan: Check TSH. Synthroid. (7) Dementia F03.90 - UNSPECIFIED DEMENTIA WITHOUT BEHAVIORAL DISTURBANCE Chronic Present on Admission: Yes Qualifiers: Dementia type: D Alzheimer's disease onset: A Dementia behavioral disturbance: D Will likely complicate her recovery. - Plan In summary, this patient is acutely and critically ill. The patient requires treatment of vital organ failure and measures to prevent further life- threatening deterioration of condition. I have spent 45 min in the critical care of this patient. Case Care Discussed with: Patient, Nursing Staff Total Time: 45 min Critical Care: Yes Code: 291 NIH Stroke Scale Initial Evaluation Level of Consciousness: Alert LOC- Question: Answers One Correctly LOC Commands: Both Task Correctly Best Gaze: Normal Visual: No Visual Loss Facial Palsy: Minor Paralysis Motor Arm LEFT: No Drift Motor Arm RIGHT: No Drift Motor Leg LEFT: No Drift Motor Leg RIGHT: No Drift Limb Ataxia: Absent Sensory: Normal Best Language: No Aphasia Dysarthria: Normal Extinction and Inattention: No Abnormality (Neglect) Score: 2out of42
[2016-04-06] MEDS ORDERED: DIPHENHYDRAMINE 25 MG PO PRN (21:35)
[2016-04-06] MEDS ORDERED: HYDROCODONE 5 MG/ACETAMIN 325 MG TAB PO PRN (21:35)
[2016-04-06] MEDS ORDERED: BENZONATATE 100 MG PERLES PO PRN (21:38)
[2016-04-06] MEDS ORDERED: ONDANSETRON HCL 4 MG/2 ML VIAL IV PRN (21:38)
[2016-04-06] MEDS ORDERED: ACETAMINOPHEN 325 MG SUPP PR PRN (21:38)
[2016-04-06] MEDS ORDERED: ACETAMINOPHEN 325 MG/TAB TABLET PO PRN (21:38)
[2016-04-06] MEDS ORDERED: SENNA CONCENTRATE TAB PO PRN (21:38)
[2016-04-06] MEDS ORDERED: SIMETHICONE 80 MG TAB PO PRN (21:38)
[2016-04-06] MEDS ORDERED: GUAIFEN 100 MG-DEXTROMETH 10 MG PER 5 ML PO PRN (21:38)
[2016-04-06] MEDS ORDERED: BISACODYL 5 MG TAB PO PRN (21:38)
[2016-04-06] MEDS ORDERED: TEMAZEPAM 15 MG CAP PO PRN (21:38)
[2016-04-06] MEDS ORDERED: PROMETHAZINE 25 MG/ML VIAL IV PRN (21:38)
[2016-04-06] MEDS ORDERED: DIPHENHYDRAMINE 25 MG CAP PO PRN (21:48)
[2016-04-06] MEDS ORDERED: TRIAMCINOLONE 0.5% CREAM 15 GM TUBE TOP SCH (22:00)
[2016-04-06] MEDS: ENOXAPARIN 40 MG/0.4 ML PFS SQ SCH (23:26)
[2016-04-06] MEDS: NS 1,000 ML IV SCH (23:27)
[2016-04-07] MEDS: TRIAMCINOLONE 0.5% CREAM 15 GM TUBE TOP SCH ×3 (05:09→20:25)
[2016-04-07 05:22] LABS: MPV 7.1 fL (7.4-10.4)
[2016-04-07 05:49] LABS: BLOOD UREA NITROGEN 13 MG/DL (7-17); CALCIUM 9.2 MG/DL (8.4-10.2); CALCULATED OSMOLALITY 255 MOs/Kg (270-290); CHLORIDE 98 mEq/L (98-107); GLUCOSE 92 MG/DL (70-99); LDL (calc.) 101.8 MG/DL (<100); SODIUM LEVEL 132 mEq/L (137-146); VLDL (calc.) 35.2 MG/DL (5-40)
[2016-04-07] MEDS ORDERED: Vaccine Screening Complete SCH (07:00)
--- NOTE | 2016-04-07 08:08 | DIRPT ---
CLINICAL DATA: Facial droop EXAM: BILATERAL CAROTID DUPLEX ULTRASOUND TECHNIQUE: Ragsdale scale imaging, color Doppler and duplex ultrasound were performed of bilateral carotid and vertebral arteries in the neck. COMPARISON: None. FINDINGS: Criteria: Quantification of carotid stenosis is based on velocity parameters that correlate the residual internal carotid diameter with NASCET-based stenosis levels, using the diameter of the distal internal carotid lumen as the denominator for stenosis measurement. The following velocity measurements were obtained: RIGHT ICA: 83 cm/sec CCA: 74 cm/sec SYSTOLIC ICA/CCA RATIO: 1.1 DIASTOLIC ICA/CCA RATIO: 3.0 ECA: 70 cm/sec LEFT ICA: 75 cm/sec CCA: 79 cm/sec SYSTOLIC ICA/CCA RATIO: 1 DIASTOLIC ICA/CCA RATIO: 1.8 ECA: 79 cm/sec RIGHT CAROTID ARTERY: There is calcified plaque in the upper bulb. Low resistance internal carotid Doppler pattern. Moderate tortuosity of the internal carotid. RIGHT VERTEBRAL ARTERY: Antegrade. Normal Doppler pattern. LEFT CAROTID ARTERY: Little if any plaque in the bulb. Low resistance internal carotid Doppler pattern. LEFT VERTEBRAL ARTERY: Antegrade. Low resistance Doppler pattern. Additional finding: Several cysts are seen in the right lobe of the thyroid gland. The largest visualized cyst is 7 mm. IMPRESSION: Less than 50% stenosis in the right and left internal carotid arteries. There is calcified plaque in the right upper bulb. Several right thyroid cysts. The largest is 7 mm. Complete thyroid ultrasound is recommended. Electronically Signed By: Jeff Ellis M.D. On: 04/07/2016 08:06
--- NOTE | 2016-04-07 08:20 | GENMEDPROG ---
Chief Complaint: CVA Subjective Note: Patient admitted with weakness, and slurred speech. She does not have any rectal recollection and is a poor historian. Currently, she complains many of right shoulder pain, which she admits is chronic related to a prior rotator cuff injury per nursing staff. Notes Reviewed: Yes Events from last night noted and discussed with Clinical Staff Current Medication List: Reviewed DVT Prophylaxis: Yes - Physical Examination Vital Signs and I&O: Last Vital Signs Temp 98.2 F 04/07/16 03:59 Pulse 75 04/07/16 08:16 Resp 18 04/07/16 03:59 BP 163/72 04/07/16 03:59 Pulse Ox 95 04/07/16 03:59 Oxygen Pulse Oxygen Saturation 95 O2 Device Room Air Oxygen Flow Rate Fraction of Inspired Oxygen ( FIO2) Intake & Output 04/05/16 04/06/16 04/07/16 04/08/16 06:59 06:59 06:59 06:59 Intake Total 556 Output Total 1300 Balance -744 Patient's weight 59.285 kg General: Alert, Oriented x3, Cooperative, Moderate distress HEENT: EOMI (Sclera white) Neck: Normal Trachea alignment, Normal inspection Lymphatics: Normal (no adenopathy) Respiratory: Normal - CTA (BBS clear to auscultation without adventitious sounds ) Cardiovascular: Regular rate, No Gallops,Rubs/Murmurs GI: Normal bowel sounds, Soft, Non tender (non distended) Extremities/Musculoskeletal: Other (Normal Tone). negative: Edema, Cyanosis Neurological: Normal speech, Strength (Global weakness throughout, I feel likely related to her age and frailty, rather than a focal neurologic deficit.) . negative: Strength at 5/5 X4 ext Psych/Mental Status: Appropriate, Normal Affect, Cooperative Lab/DI/Studies Reviewed: Laboratory Tests 04/07/16 04/07/16 04:35 04:35 WBC 6.4 Hgb 11.2 L Hct 32.3 L Sodium 132 L Potassium 4.0 BUN 13 Creatinine 0.60 LDL Cholesterol, Calc 101.8 H - Assessment (1) CVA - cerebrovascular accident due to cerebral artery occlusion Acute I63.50 - CEREB INFRC DUE TO UNSP OCCLS OR STENOS OF UNSP CEREB ARTERY Comment/Plan: Plan: CVA order set. MRI head pending this AM. Carotid Dopplers completed, less than 50% stenosis bilaterally. NPO until speech therapy evaluation. Physical therapy and occupational therapy evaluations. Neuro checks q 4 hours. Telemetry. NO daily aspirin due to allergy. May want to consider other medication, such as Plavix. Continue statin. LDL above 100. NOTE: TPA NOT GIVEN. NO TPA DUE TO: NIH stroke score too low, and patient improving rapidly. (2) Dysphagia Acute R13.10 - DYSPHAGIA, UNSPECIFIED Qualifiers: Dysphagia type: D Comment/Plan: Reports of dysphagia prior to arrival in emergency department. Plan: Continue CVA workup. NPO initially. Speech therapy evaluation. (3) Hypothyroid Acute E03.9 - HYPOTHYROIDISM, UNSPECIFIED Qualifiers: Hypothyroidism type: H Comment/Plan: Plan: Check TSH. Synthroid. (4) Right shoulder strain Acute S46.911A - STRAIN UNSP MUSC/FASC/TEND AT SHLDR/UP ARM, RIGHT ARM, INIT Qualifiers: Encounter type: initial encounter Qualified Code(s): S46.911A - Strain of unspecified muscle, fascia and tendon at shoulder and upper arm level, right arm , initial encounter (5) Essential hypertension Chronic I10 - ESSENTIAL (PRIMARY) HYPERTENSION Comment/Plan: Medications will be continued - Plan In summary this patient is acutely and critically ill. The patient requires treatment of vital organ failure and measures to prevent further life- threatening deterioration of the above conditions. I personally reviewed and ordered lab testing, as well as imaging. I reviewed old medical records from previous hospitalizations as available, and spent the time mentioned below in critical care of this patient including counseling and coordination of care. Total Time: 42
[2016-04-07] MEDS: Docusate Sodium 100 MG CAP PO SCH (10:17)
[2016-04-07] MEDS: CHOLECALCIFEROL 1000 UNITS TAB PO SCH (11:00)
[2016-04-07] MEDS: CLOPIDOGREL 75 MG TAB PO SCH (11:00)
[2016-04-07] MEDS: LEVOTHYROXINE 25 MCG (0.025 MG) TAB PO SCH (11:00)
[2016-04-07] MEDS: ATORVASTATIN 10 MG TAB PO SCH (11:00)
--- NOTE | 2016-04-07 11:43 | DIRPT ---
CLINICAL DATA: 85-year-old female with confusion for the past day. Facial droop and slurred speech. Subsequent encounter. EXAM: MRI HEAD WITHOUT AND WITH CONTRAST TECHNIQUE: Multiplanar, multiecho pulse sequences of the brain and surrounding structures were obtained without and with intravenous contrast. CONTRAST: 10 cc MultiHance. COMPARISON: 04/06/2016 and 03/06/[address] No comparison brain MR. FINDINGS: No acute infarct or intracranial hemorrhage. Prominent chronic microvascular changes most notable periventricular region. Global atrophy. Ventricular prominence similar to most remote exam of 2012 and may represent central atrophy and/or compensated mild hydrocephalus without change. No intracranial mass or abnormal enhancement. Major intracranial vascular structures are patent. Partial opacification left mastoid air cells without obstructing lesion of the eustachian tube noted. Minimal to mild paranasal sinus mucosal thickening. Cervical spondylotic changes C3-4 incompletely assessed. Cervical medullary junction, pituitary, orbital structures and pineal region unremarkable. IMPRESSION: No acute infarct or intracranial hemorrhage. Prominent chronic microvascular changes most notable periventricular region. Global atrophy. Ventricular prominence similar to most remote exam of 2012 and may represent central atrophy and/or compensated mild hydrocephalus without change. No intracranial mass or abnormal enhancement. Partial opacification left mastoid air cells. Electronically Signed By: Dhruv Francisco M.D. On: 04/07/2016 11:41
[2016-04-07] MEDS: ENOXAPARIN 40 MG/0.4 ML PFS SQ SCH (16:16)
[2016-04-07] MEDS: NS 1,000 ML IV SCH ×2 (16:25→21:49)
[2016-04-07] MEDS: TRAMADOL HCL 50 MG TAB PO PRN (20:25)
[2016-04-07] MEDS ORDERED: ALPRAZOLAM 0.5 MG TAB PO SCH (21:00)
[2016-04-08] MEDS: NS 1,000 ML IV SCH (03:15)
[2016-04-08] MEDS: TRAMADOL HCL 50 MG TAB PO PRN (05:07)
[2016-04-08] MEDS: TRIAMCINOLONE 0.5% CREAM 15 GM TUBE TOP SCH (05:08)
[2016-04-08 08:12] VITALS: TEMP 98.2
[2016-04-08] MEDS: ATORVASTATIN 10 MG TAB PO SCH (08:39)
[2016-04-08] MEDS: LEVOTHYROXINE 25 MCG (0.025 MG) TAB PO SCH (08:39)
[2016-04-08] MEDS: CLOPIDOGREL 75 MG TAB PO SCH (08:39)
[2016-04-08] MEDS: CHOLECALCIFEROL 1000 UNITS TAB PO SCH (08:40)
[2016-04-08] MEDS: Docusate Sodium 100 MG CAP PO SCH (08:44)
--- NOTE | 2016-04-08 10:17 | PCM.DCS92 ---
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 She had MRI of the head and ultrasound of the carotids which were both unremarkable for any acute process. She was NPO until she was seen by speech therapy, with no deficits. Physical therapy also saw the patient and deemed her safe to return back to assisted living facility without any skilled therapy needs. (2) Dysphagia Acute R13.10 - DYSPHAGIA, UNSPECIFIED Present on Admission: Yes D Comment: Reports of dysphagia prior to arrival in emergency department. Plan: Continue CVA workup. NPO initially. Speech therapy evaluation has been passed. (3) Hypothyroid Acute E03.9 - HYPOTHYROIDISM, UNSPECIFIED Present on Admission: Yes H Comment: Continue home Synthroid dose. (4) Right shoulder strain Acute S46.911A - STRAIN UNSP MUSC/FASC/TEND AT SHLDR/UP ARM, RIGHT ARM, INIT initial encounter S46.911A - Strain of unspecified muscle, fascia and tendon at shoulder and upper arm level, right arm, initial encounter (5) Essential hypertension Chronic I10 - ESSENTIAL (PRIMARY) HYPERTENSION Comment: Medications will be continued Discharge Disposition: Assisted Living Facility Discharge Condition: Good Cognitive Discharge Status: Unimpaired Fuctional Discharge Status: Independent Physician Follow up/Referrals: Bijan Perez Jr, MD [Primary Care Provider] - One Week Home Medications / New Prescriptions: Continue Triamcinolone Acetonide 1 gm TOP TID PEG-Electrolytes (Miralax) [Miralax] 17 gm PO DAILY PRN PRN Reason: Constipation Clopidogrel Bisulfate [Plavix] 75 mg PO DAILY Cholecalciferol [Vitamin D3 (cholecalciferol)] 1,000 units PO DAILY Lisinopril [Prinivil] 2.5 mg PO HS Levetiracetam [Keppra Xr] 1,000 mg PO BID Docusate Sodium [Colace] 100 mg PO QAM Acetaminophen [Tylenol] 650 mg PO Q6H Levothyroxine [Synthroid, Levoxyl] 25 mcg PO DAILY #30 tab Diphenhydramine [Benadryl] 25 mg PO TID PRN PRN Reason: Itching Furosemide [Lasix] 20 mg PO BID Melatonin/Pyridoxine HCl (B6) [Melatonin 10 mg Tablet] 1 tab PO HS Atorvastatin Calcium [Lipitor] 10 mg PO DAILY Mineral Oil [Mineral Oil Heavy] 2 drop AU WE Alprazolam [Xanax] 0.5 mg PO QHS Tramadol HCl [Ultram] 50 mg PO Q6 PRN #15 tablet PRN Reason: Pain Guaifenesin [Robitussin] 5 ml PO Q8H PRN PRN Reason: Cough Hydrocodone Bit/Acetaminophen [Hydrocodon-Acetaminophen 5-325] 1 tab PO Q4H PRN #14 tab PRN Reason: Pain O2 Device: Room Air Diet at Discharge: Regular Activity: No Restrictions Call Office For: Worsening Symptoms - DC Summary Notes HPI/Notes: This is a pleasant 85-year-old female was a resident of assisted living facility and sent to the hospital due to concerns for stroke-like symptoms. She has been diagnosed with TIA. Her symptoms resolved very quickly soon after admission to the hospital. She had stroke workup as mentioned above, she will discharge home today to resume her usual medications with no changes. Please see the hospital problems and discharge problems above for details of the hospital course including diagnostics and treatment. The plan of care including medications, prognosis, follow-up including alarm symptoms for which medical care should be sought were reviewed with the patient and any available family members/caretakers. The patient is agreeable to discharge today, and all questions were answered by me to their satisfaction. Hospital Course Note:: Discharge summary on patient named CHANEL VELASQUEZ admitted to [facility] on 04/06/16 by James Croft MD. Date of discharge is []. Total Time: 40 - Physical Exam Vital Signs: Last Vital Signs Temp 98.2 F 04/08/16 08:00 Pulse 86 04/08/16 08:00 Resp 18 04/08/16 08:00 BP 151/67 04/08/16 08:00 Pulse Ox 99 04/08/16 08:00 Oxygen Pulse Oxygen Saturation 99 O2 Device Room Air Oxygen Flow Rate Fraction of Inspired Oxygen ( FIO2) Constitutional: Alert (Awake), No apparent distress Oriented to: Time, Person, Place Exam: Resting comfortably in bed this morning. She is slightly confused, thinks she is already back home. She is happy to leave the hospital today and go back to her assisted living facility. - HEENT Head: Normal ( normocephalic) Eye: Normal (PERRL, EOMI, Sclera white) Oropharynx: Normal (Pharynx:Moist without exudate,Gums-no swelling) ENT EAC: Normal TMJ: Normal Nose: No Symptoms Reported (septum midline) - Respiratory/Cardiovascular Respiratory: Normal - CTA (BBS clear to auscultation without adventitious sounds ) Cardiovascular: Normal (RRR , Normal S1, S2. No murmurs, rubs, or gallops. PMI non-displaced. Carotids: no carotid bruits. No bradycardia or tachycardia. DP pulses 2+ bilaterally.) - GI Auscultation: Normal (NABS) Palpation: Normal (Soft,No rebound or guarding, non distended) Tenderness: Non tender Xie's Sign: Negative - Musculoskeletal Back: Normal (Non-Tender) Extremities: Normal (Normal tone, Pulses 2+ No cyanosis or edema, FROM) - Integumentary Lymphatics: Normal (no adenopathy) - Neurologic Memory Impaired: Unable to Test Cerebellar: Normal Mood Description: Normal Perception: Normal
[2016-04-08 10:52] VITALS: BP 140/61; PULSE 84
[2016-04-12] MEDS ORDERED: MINERAL OIL AU SCH (21:35)
== END 2016-04-08 12:32 | disposition short-term general hospital (02) | DRG 69 ==
LOC: ED 16:33 → PCU 18:28
PROVIDERS: ADMIT Internal Medicine; ATTEND Internal Medicine
DX: G45.9 Transient cerebral ischemic attack, unspecified (principal); I50.9 Heart failure, unspecified; J44.9 Chronic obstructive pulmonary disease, unspecified; R13.10 Dysphagia, unspecified; E03.9 Hypothyroidism, unspecified; S46.911A Strain of unspecified muscle, fascia and tendon at shoulder and upper arm level, right arm, initial encounter; I10 Essential (primary) hypertension; I25.2 Old myocardial infarction; E78.00 Pure hypercholesterolemia, unspecified; K21.9 Gastro-esophageal reflux disease without esophagitis; Z88.0 Allergy status to penicillin; Z88.8 Allergy status to other drugs, medicaments and biological substances; Z79.899 Other long term (current) drug therapy; G40.909 Epilepsy, unspecified, not intractable, without status epilepticus; M12.811 Other specific arthropathies, not elsewhere classified, right shoulder; X58.XXXA Exposure to other specified factors, initial encounter; Y93.9 Activity, unspecified
CPT/HCPCS: 36415; 70450; 70553; 71010; 80048; 80053; 80061; 81001; 83880; 84443; 84484; 85025; 85027; 85610; 85730; 93005; 93880; 96360; 96361; 96372; 97161; 97165; 99285; A9577; J1650; J1953; J3490